=== PATIENT | male | born 1960 | race Caucasian/White ===

== ENCOUNTER 2017-05-29 19:58 | Inpatient (IN) | payer OTHER ==
[~2017-05-29] VITALS: Ht 177.8 cm; Wt 75.0 kg
[2017-05-29 20:00] VITALS: BP 107/72; PULSE 85; RESP 18; TEMP 99.6; O2SAT 98
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
[2017-05-29 20:15] VITALS: O2SAT 98
[2017-05-29] MEDS ORDERED: SODIUM CHLORIDE 0.9% FLUSH 10 ML FLUSH IV FLUSH PRN ×2 (20:15→21:30)
[2017-05-29] MEDS ORDERED: SODIUM CHLOR 0.9% 1000 ML INJ 1,000 ML IV ONE ×2 (20:15→21:00)
[2017-05-29 20:30] VITALS: BP 122/71; PULSE 85; RESP 16; TEMP 98.9; O2SAT 97
[2017-05-29 20:35] LABS: AUTOMATED NEUTROPHIL # 12.6 TH/MM3 (1.8-7.7); BASOPHIL # 0.2 TH/MM3 (0-0.2); BASOPHIL % 1.2 % (0.0-2.0); EOSINOPHIL % 0.1 % (0.0-4.0); HEMATOCRIT 48.4 % (39.0-51.0); HEMOGLOBIN 16.6 GM/DL (13.0-17.0); LYMPH % 6.5 % (9.0-44.0); MEAN CELL VOLUME 101.6 FL (80.0-100.0); MEAN CORPUSCULAR HEMOGLOBIN 34.8 PG (27.0-34.0); MEAN CORPUSCULAR HGB CONC 34.3 % (32.0-36.0); MEAN PLATELET VOLUME 8.2 FL (7.0-11.0); MONO % 10.6 % (0.0-8.0); MONOCYTE # 1.6 TH/MM3 (0-0.9); NEUT % 81.6 % (16.0-70.0); PLATELET COUNT 218 TH/MM3 (150-450); RED BLOOD COUNT 4.76 MIL/MM3 (4.50-5.90); RED CELL DISTRIBUTION WIDTH 12.6 % (11.6-17.2); WHITE BLOOD COUNT 15.4 TH/MM3 (4.0-11.0)
[2017-05-29 20:39] LABS: CHLORIDE 99 MEQ/L (98-107); SODIUM (NA) 136 MEQ/L (136-145)
[2017-05-29 20:43] LABS: BICARBONATE 23.5 MEQ/L (21.0-32.0); BLOOD UREA NITROGEN 58 MG/DL (7-18); CALCIUM 8.6 MG/DL (8.5-10.1); GLUCOSE,RANDOM 125 MG/DL (74-106)
[2017-05-29 20:46] LABS: ALT (GPT) 81 U/L (12-78); AST (GOT) 165 U/L (15-37); GLOMERULAR FILTRATION RATE 52 ML/MIN (>89)
[2017-05-29 20:48] LABS: TOTAL BILIRUBIN ADULT 1.9 MG/DL (0.2-1.0); TOTAL PROTEIN 7.9 GM/DL (6.4-8.2)
[2017-05-29 20:49] LABS: ALKALINE PHOSPHATASE 92 U/L (45-117)
[2017-05-29 20:50] LABS: INTERNATIONAL NORMALIZED RATIO 1.1 RATIO; PROTHROMBIN TIME - PATIENT 11.3 SEC (9.8-11.6)
[2017-05-29 20:51] LABS: TROPONIN I 0.04 NG/ML (0.02-0.05)
[2017-05-29 21:00] VITALS: BP 130/80; PULSE 88; RESP 18; O2SAT 97
--- NOTE | 2017-05-29 21:01 | RADRPT ---
EXAM DATE/TIME: 05/29/2017 20:29 [facility] COMPARISON: No previous studies available for comparison. INDICATIONS : Altered mental status. Unable to walk or stand. Memory loss RADIATION DOSE: 61.62 CTDIvol (mGy) MEDICAL HISTORY : None SURGICAL HISTORY : None. ENCOUNTER: Initial ACUITY: 1 day PAIN SCALE: 5/10 LOCATION: cranial TECHNIQUE: Multiple contiguous axial images were obtained of the head. Using automated exposure control and adj ustment of the mA and/or kV according to patient size, radiation dose was kept as low as reasonably a chievable to obtain optimal diagnostic quality images. DICOM format image data is available electro nically for review and comparison. FINDINGS: CEREBRUM: The ventricles are normal for age. No evidence of midline shift, mass lesion, hemorrhage or acute in farction. No extra-axial fluid collections are seen. POSTERIOR FOSSA: The cerebellum and brainstem are intact. The 4th ventricle is midline. The cerebellopontine angle i s unremarkable. EXTRACRANIAL: The visualized portion of the orbits is intact. SKULL: The calvaria is intact. No evidence of skull fracture. CONCLUSION: Negative noncontrast head CT. Curtis Siddiqui MD on May 29, 2017 at 20:58 Board Certified Radiologist. This report was verified electronically.
--- NOTE | 2017-05-29 21:22 | RADRPT ---
EXAM DATE/TIME: 05/29/2017 21:09 [facility] COMPARISON: No previous studies available for comparison. INDICATIONS : Syncopal episode. MEDICAL HISTORY : None. SURGICAL HISTORY : None. ENCOUNTER: Initial ACUITY: 1 day PAIN SCORE: 0/10 LOCATION: Bilateral chest FINDINGS: Mild anteriorly diffuse interstitial opacities are seen of both lungs. Nothing confluent. No pleural effusion or pneumothorax. Normal heart size. CONCLUSION: Mild diffuse interstitial opacities with differential of noncardiogenic edema and atypical or viral p neumonia. Curtis Siddiqui MD on May 29, 2017 at 21:19 Board Certified Radiologist. This report was verified electronically.
[2017-05-29] MEDS ORDERED: BISACODYL 10 MG SUPP RECTAL PRN (21:30)
[2017-05-29] MEDS ORDERED: ACETAMINOPHEN/HYDROcodone 325 MG/5 MG TAB PO PRN (21:30)
[2017-05-29] MEDS ORDERED: ACETAMINOPHEN/HYDROcodone 325 MG/10 MG TAB PO PRN (21:30)
[2017-05-29] MEDS ORDERED: ONDANSETRON HCL 4 MG/2 ML VIAL IVP PRN (21:30)
[2017-05-29] MEDS ORDERED: ACETAMINOPHEN 325 MG TAB PO PRN (21:30)
[2017-05-29] MEDS ORDERED: LACTULOSE SYRUP 20 GM/30 ML CUP PO PRN (21:30)
[2017-05-29] MEDS ORDERED: MAGNESIUM HYDROXIDE SUSP 30 ML CUP PO PRN (21:30)
[2017-05-29] MEDS ORDERED: SENNOSIDES 8.6 MG TAB PO PRN (21:30)
[2017-05-29 21:33] LABS: ACETAMINOPHEN LESS THAN 2.0 MCG/ML (10.0-30.0)
[2017-05-29] MEDS ORDERED: AZITHROMYCIN INJ 500 MG in SODIUM CHLOR 0.9% 250 ML INJ 250 ML IV ONE (21:45)
[2017-05-29] MEDS ORDERED: cefTRIAXone INJ 1,000 MG in SODIUM CHLORIDE 0.9% INJ 100 ML IV ONE (21:45)
[2017-05-29 21:57] VITALS: BP 125/65; PULSE 82; RESP 16; O2SAT 97
[2017-05-29 21:58] LABS: BILIRUBIN, URINE MOD (NEG); BLOOD, URINE LARGE (NEG); GLUCOSE,URINE NEG (NEG); KETONE, URINE 80 OR GREATER mg/dL (NEG); NITRITE,URINE NEG (NEG); PH, URINE 5.5 (5.0-8.5); URINE LEUKOCYTE ESTERASE NEG (NEG)
[2017-05-29 22:15] LABS: URINE COLOR AMBER (YELLW/STRAW)
[2017-05-29 22:16] LABS: MUCUS URINE FEW /lpf (OCC)
[2017-05-29 22:17] LABS: RBC, URINE 0-3 /hpf (0-3)
[2017-05-29 22:18] LABS: RENAL EPITHELIAL CELLS 0-5 /hpf; SQUAMOUS EPITHELIAL CELL URINE 0-5 /hpf (0-5)
[2017-05-29 22:19] LABS: AMORPHOUS SEDIMENT, URINE SMALL
[2017-05-30] VITALS: BP 120/71; PULSE 98; RESP 20; TEMP 96.6; O2SAT 96
[2017-05-30] MEDS: SODIUM CHLOR 0.9% 1000 ML INJ 1,000 ML IV SCH ×4 (00:35→23:41)
[2017-05-30 04:00] VITALS: BP 117/53; PULSE 95; RESP 18; TEMP 96.2; O2SAT 92
[2017-05-30 08:00] VITALS: BP 125/57; PULSE 90; RESP 20; TEMP 97.1; O2SAT 97
[2017-05-30] MEDS: DOCUSATE SODIUM 50 MG/SENNA 8.6 MG TAB PO SCH ×2 (08:13→21:00)
[2017-05-30] MEDS: SODIUM CHLORIDE 0.9% FLUSH 10 ML FLUSH IV FLUSH SCH ×2 (08:15→21:00)
[2017-05-30] MEDS ORDERED: ACETAMINOPHEN/HYDROcodone 325 MG/5 MG TAB PO PRN (10:00)
[2017-05-30] MEDS: CEFEPIME INJ 2,000 MG in SODIUM CHLORIDE 0.9% INJ 100 ML IV SCH ×2 (10:47→23:41)
[2017-05-30 11:41] LABS: BASOPHIL # 0.1 TH/MM3 (0-0.2); BASOPHIL % 0.6 % (0.0-2.0); EOSINOPHIL % 0.3 % (0.0-4.0); HEMATOCRIT 37.6 % (39.0-51.0); LYMPH % 11.4 % (9.0-44.0); LYMPHOCYTE # 1.1 TH/MM3 (1.0-4.8); MEAN CELL VOLUME 100.1 FL (80.0-100.0); MEAN CORPUSCULAR HEMOGLOBIN 34.6 PG (27.0-34.0); MEAN CORPUSCULAR HGB CONC 34.6 % (32.0-36.0); MEAN PLATELET VOLUME 8.2 FL (7.0-11.0); MONO % 14.3 % (0.0-8.0); MONOCYTE # 1.4 TH/MM3 (0-0.9); NEUT % 73.4 % (16.0-70.0); PLATELET COUNT 181 TH/MM3 (150-450); RED BLOOD COUNT 3.76 MIL/MM3 (4.50-5.90); RED CELL DISTRIBUTION WIDTH 11.9 % (11.6-17.2); WHITE BLOOD COUNT 9.6 TH/MM3 (4.0-11.0)
[2017-05-30 11:49] LABS: CHLORIDE 106 MEQ/L (98-107); SODIUM (NA) 141 MEQ/L (136-145)
[2017-05-30 11:51] LABS: INTERNATIONAL NORMALIZED RATIO 1.1 RATIO; PROTHROMBIN TIME - PATIENT 11.4 SEC (9.8-11.6)
[2017-05-30 11:52] LABS: CALCIUM 7.8 MG/DL (8.5-10.1)
[2017-05-30 11:59] LABS: ALBUMIN 2.2 GM/DL (3.4-5.0); ALKALINE PHOSPHATASE 76 U/L (45-117); ALT (GPT) 64 U/L (12-78); AST (GOT) 140 U/L (15-37); BICARBONATE 26.7 MEQ/L (21.0-32.0); BLOOD UREA NITROGEN 37 MG/DL (7-18); CREATININE 0.95 MG/DL (0.60-1.30); GLOMERULAR FILTRATION RATE 81 ML/MIN (>89); GLUCOSE,RANDOM 136 MG/DL (74-106); TOTAL BILIRUBIN ADULT 1.2 MG/DL (0.2-1.0); TOTAL PROTEIN 5.9 GM/DL (6.4-8.2)
[2017-05-30 12:00] VITALS: BP 112/68; PULSE 93; RESP 20; TEMP 97.5; O2SAT 95
--- NOTE | 2017-05-30 12:29 | RADRPT ---
EXAM DATE/TIME: 05/30/2017 11:57 [facility] COMPARISON: No previous studies available for comparison. INDICATIONS : Increased BUN/Creatnine. MEDICAL HISTORY : Seizures. Arthritis. Alcohol use. Substance use. SURGICAL HISTORY : Left ankle repair with pins. Left wrist artery repair. ENCOUNTER: Initial ACUITY: 1 day PAIN SCORE: 3/10 LOCATION: Bilateral flank MEASUREMENTS: RIGHT KIDNEY: 12.0 x 4.2 x 5.8 cm LEFT KIDNEY: 11.7 x 4.4 x 5.6 cm FINDINGS: RIGHT KIDNEY: Renal cortex is normal in thickness and echotexture. No hydronephrosis, or mass. There is a small 5 mm stone identified within the lower pole. LEFT KIDNEY: 9 mm stone identified within the upper pole. BLADDER: Bladder is decompressed with a Hicks catheter present CONCLUSION: Bilateral small nonobstructing renal stones. The renal cortex is normal in thickness and echogenicity . The bladder is decompressed with a Hicks catheter. Marlena Otoole MD on May 30, 2017 at 12:24 Board Certified Radiologist. This report was verified electronically.
[2017-05-30] MEDS ORDERED: LORazepam 2 MG/ML VIAL IV PUSH PRN ×4 (13:45)
[2017-05-30] MEDS ORDERED: LORazepam 2 MG TAB PO PRN (13:45)
[2017-05-30] MEDS ORDERED: LORazepam 1 MG TAB PO PRN (13:45)
[2017-05-30] MEDS ORDERED: FLUMAZENIL 0.5 MG/5 ML VIAL IV PUSH PRN (13:45)
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
[2017-05-30 15:08] LABS: FREE T3 2.56 PG/ML (2.18-3.98); FREE T4 1.07 NG/DL (0.76-1.46)
[2017-05-30 16:00] VITALS: BP_SYST 125; BP_SYST 140; BP_DIAS 65; BP_DIAS 75; PULSE 81; PULSE 95; RESP 20; TEMP 96.4; TEMP 98.3; O2SAT 95; O2SAT 97
[2017-05-30] MEDS ORDERED: RESP: ALBUTEROL 2.5 MG/IPRATROPIUM 0.5 MG NEB (PRN) NEB (18:15)
[2017-05-30 20:27] VITALS: BP 123/89; PULSE 98; RESP 20; TEMP 96.6; O2SAT 97
[2017-05-30] MEDS: ACETAMINOPHEN/HYDROcodone 325 MG/10 MG TAB PO PRN (20:42)
[2017-05-31] VITALS: BP 123/87; PULSE 88; RESP 18; TEMP 96.9; O2SAT 95
[2017-05-31] MEDS: ACETAMINOPHEN/HYDROcodone 325 MG/10 MG TAB PO PRN ×3 (03:04→17:56)
[2017-05-31 06:29] LABS: CHLORIDE 110 MEQ/L (98-107); SODIUM (NA) 142 MEQ/L (136-145)
[2017-05-31] MEDS: SODIUM CHLOR 0.9% 1000 ML INJ 1,000 ML IV SCH ×3 (06:31→17:57)
[2017-05-31] MEDS: LEVOTHYROXINE SODIUM 112 MCG TAB PO SCH (06:32)
[2017-05-31 06:34] LABS: ALBUMIN 2.1 GM/DL (3.4-5.0); BICARBONATE 27.9 MEQ/L (21.0-32.0); CALCIUM 7.7 MG/DL (8.5-10.1); GLUCOSE,RANDOM 96 MG/DL (74-106)
[2017-05-31 06:42] LABS: ALKALINE PHOSPHATASE 69 U/L (45-117); ALT (GPT) 63 U/L (12-78); AST (GOT) 114 U/L (15-37); BLOOD UREA NITROGEN 19 MG/DL (7-18); CREATININE 0.68 MG/DL (0.60-1.30); GLOMERULAR FILTRATION RATE 119 ML/MIN (>89); TOTAL PROTEIN 5.6 GM/DL (6.4-8.2)
[2017-05-31 08:00] VITALS: BP 159/79; PULSE 89; RESP 20; TEMP 96.9; O2SAT 95
[2017-05-31] MEDS: DOCUSATE SODIUM 50 MG/SENNA 8.6 MG TAB PO SCH ×2 (08:49→20:36)
[2017-05-31] MEDS: THIAMINE HCL 100 MG TAB PO SCH (08:49)
[2017-05-31] MEDS: SODIUM CHLORIDE 0.9% FLUSH 10 ML FLUSH IV FLUSH SCH ×2 (08:50→20:36)
[2017-05-31] MEDS: REMOVE OLD PATCH T-DERMAL SCH (08:51)
[2017-05-31] MEDS: NICOTINE 21 MG/24 HR PATCH T-DERMAL SCH (08:51)
--- NOTE | 2017-05-31 10:20 | HHI.PR ---
Subjective Remarks Follow-up pneumonia/rhabdomyolysis/weakness 05/31/17-patient seen and examined,states he is still weak and unable to move much out of bed, despite the fact that he was able to use the bedside commode overnight on his own. Still with some cough production. Afebrile. patient is alert and oriented 3 Objective Vitals Vital Signs Date Time Temp Pulse Resp B/P (MAP) Pulse Ox O2 Delivery O2 Flow Rate FiO2 05/31/17 08:00 96.9 89 20 159/79 (105) 95 05/31/17 00:00 96.9 88 18 123/87 (99) 95 05/30/17 20:27 96.6 98 20 123/89 (100) 97 05/30/17 16:00 96.4 95 20 125/75 (92) 97 05/30/17 12:00 97.5 93 20 112/68 (83) 95 I/O 05/30/17 05/30/17 05/30/17 05/31/17 05/31/17 05/31/17 07:00 15:00 23:00 07:00 15:00 23:00 Intake Total 730 ml 2255 ml 910 ml 2240 ml Output Total 750 ml 1200 ml 2000 ml Balance -20 ml 1055 ml 910 ml 240 ml Intake Oral 480 ml 1200 ml 240 ml IV Total 250 ml 1055 ml 910 ml 2000 ml Output Urine Total 750 ml 1200 ml 2000 ml # Bowel Movements 1 0 Result Diagram: 05/30/17 1052 05/31/17 0537 Imaging Last Impressions Renal Ultrasound 05/30/17 0000 Signed Impressions: Service Date/Time: Tuesday, May 30, 2017 11:57 - CONCLUSION: Bilateral small nonobstructing renal stones. The renal cortex is normal in thickness and echogenicity. The bladder is decompressed with a Hicks catheter. Marlena Otoole MD Head CT 05/29/172002 Signed Impressions: Service Date/Time: Monday, May 29, 2017 20:29 - CONCLUSION: Negative noncontrast head CT. Curtis Siddiqui MD Chest X-Ray 05/29/172002 Signed Impressions: Service Date/Time: Monday, May 29, 2017 21:09 - CONCLUSION: Mild diffuse interstitial opacities with differential of noncardiogenic edema and atypical or viral pneumonia. Curtis Siddiqui MD Objective Remarks GENERAL: NAD SKIN: Warm and dry. HEAD: Normocephalic. EYES: No scleral icterus. No injection or drainage. NECK: Supple, trachea midline. No JVD or lymphadenopathy. CARDIOVASCULAR: Regular rate and rhythm without murmurs, gallops, or rubs. RESPIRATORY: Breath sounds equal bilaterally. No accessory muscle use. GASTROINTESTINAL: Abdomen soft, non-tender, nondistended. MUSCULOSKELETAL: No cyanosis, or edema. RLE/LLE weakness BACK: Nontender without obvious deformity. No CVA tenderness. A/P Problem List: (1) Rhabdomyolysis ICD Code: M62.82 - Rhabdomyolysis Status: Acute (2) Transaminitis ICD Code: R74.0 - Nonspecific elevation of levels of transaminase and lactic acid dehydrogenase [LDH] (3) Paranoid delusion ICD Code: F22 - Delusional disorders (4) Acute renal injury ICD Code: N17.9 - Acute kidney failure, unspecified Status: Acute (5) Community acquired bacterial pneumonia ICD Code: J15.9 - Unspecified bacterial pneumonia (6) Hypothyroidism ICD Code: E03.9 - Hypothyroidism, unspecified Status: Acute (7) Dehydration ICD Code: E86.0 - Dehydration Status: Acute Assessment and Plan 57-year-old man with Nontraumatic rhabdomyolysis-Improving Continue current aggressive IV fluid resuscitation Monitor CK trending Acute renal failure-Resolved Prerenal secondary to dehydration Treatment with IV fluid resuscitation Renal ultrasound noted Avoid all nephrotoxic drugs and monitor BUN and creatinine Transaminitis-Improving Likely secondary to history of alcohol abuse Hepatitis profile pending Elevated blood glucose-Resolved Hemoglobin A1c pending and treat accordingly Community acquired bacterial pneumonia Chest x-ray with finding of mild diffuse interstitial opacities Status post Rocephin and azithromycin IV 1 in ED Currently on cefepime IV pending culture report Leukocytosis Resolved UA Positive for occult blood Secondary to above dehydration versus nontraumatic rhabdomyolysis Continue with IV fluid hydration D/c Hicks Hypothyroidism TSH of 5.530 Currently on Synthroid 112 MCG daily Repeat TSH and free T4 in 4-6 weeks Paranoid delusional Psychiatry consultation pending History of alcohol abuse patient was counselled against Currently on rally pack, CIWA protocol History Of alcohol abuse Tobacco cessation counseling provided Continue nicotine patch Generalized weakness PT to treat and eval DVT prophylaxis: Bilateral SCDs Problem Qualifiers (1) Rhabdomyolysis: Qualified Codes: T79.6XXA - Traumatic ischemia of muscle, initial encounter (2) Hypothyroidism: Qualified Codes: E03.9 - Hypothyroidism, unspecified Maco Fleming MD May 31, 2017 10:20
[2017-05-31] MEDS: CEFEPIME INJ 2,000 MG in SODIUM CHLORIDE 0.9% INJ 100 ML IV SCH ×2 (11:05→22:02)
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
[2017-05-31 12:00] VITALS: BP 124/72; PULSE 92; RESP 18; TEMP 96.8; O2SAT 96
[2017-05-31 14:07] LABS: HEPATITIS A AB IGM NEGATIVE (NEGATIVE); HEPATITIS B CORE AB IGM NEGATIVE (NEGATIVE); HEPATITIS B SURFACE ANTIGEN NEGATIVE (NEGATIVE); HEPATITIS C AB IgG NEGATIVE (NEGATIVE)
[2017-05-31 15:59] LABS: HEMOGLOBIN A1C 5.7 % (4.3-6.0)
[2017-05-31 16:00] VITALS: BP 163/74; PULSE 86; RESP 18; TEMP 98.6; O2SAT 97
--- NOTE | 2017-05-31 17:42 | EKG ---
Date Performed: 05/29/2017 Time Performed: 20:18:32 PTAGE: 57 years EKG: Sinus rhythm WITH SINUS ARRHYTHMIA Poor R wave progression. Consider INFERIOR MYOCARDIAL INFARCTION-age undetermi mee. ABNORMAL ECG NO PREVIOUS TRACING DOCTOR: Francisco Baldwin Interpretating Date/Time 05/31/2017 17:41:50
[2017-05-31 20:00] VITALS: BP 118/79; PULSE 91; RESP 20; TEMP 99.9; O2SAT 96
[2017-06-01] VITALS: BP 152/95; PULSE 82; RESP 20; TEMP 98.2; O2SAT 97
[2017-06-01] MEDS: ACETAMINOPHEN/HYDROcodone 325 MG/10 MG TAB PO PRN ×2 (00:25→07:55)
[2017-06-01] MEDS: SODIUM CHLOR 0.9% 1000 ML INJ 1,000 ML IV SCH ×3 (01:16→15:03)
[2017-06-01] MEDS: LEVOTHYROXINE SODIUM 112 MCG TAB PO SCH (06:10)
[2017-06-01 06:44] LABS: AUTOMATED NEUTROPHIL # 8.3 TH/MM3 (1.8-7.7); BASOPHIL # 0.1 TH/MM3 (0-0.2); BASOPHIL % 1.2 % (0.0-2.0); EOSINOPHIL # 0.2 TH/MM3 (0-0.4); EOSINOPHIL % 1.7 % (0.0-4.0); HEMOGLOBIN 12.8 GM/DL (13.0-17.0); LYMPH % 12.3 % (9.0-44.0); LYMPHOCYTE # 1.5 TH/MM3 (1.0-4.8); MEAN CELL VOLUME 100.5 FL (80.0-100.0); MEAN CORPUSCULAR HEMOGLOBIN 34.7 PG (27.0-34.0); MEAN CORPUSCULAR HGB CONC 34.5 % (32.0-36.0); MEAN PLATELET VOLUME 7.7 FL (7.0-11.0); MONO % 15.5 % (0.0-8.0); MONOCYTE # 1.8 TH/MM3 (0-0.9); NEUT % 69.3 % (16.0-70.0); PLATELET COUNT 225 TH/MM3 (150-450); RED BLOOD COUNT 3.68 MIL/MM3 (4.50-5.90); RED CELL DISTRIBUTION WIDTH 11.9 % (11.6-17.2); WHITE BLOOD COUNT 11.9 TH/MM3 (4.0-11.0)
[2017-06-01 06:49] LABS: CHLORIDE 109 MEQ/L (98-107); SODIUM (NA) 143 MEQ/L (136-145)
[2017-06-01 06:52] LABS: CALCIUM 7.8 MG/DL (8.5-10.1)
[2017-06-01 06:53] LABS: ALBUMIN 2.2 GM/DL (3.4-5.0); BICARBONATE 27.1 MEQ/L (21.0-32.0); BLOOD UREA NITROGEN 10 MG/DL (7-18); GLUCOSE,RANDOM 97 MG/DL (74-106)
[2017-06-01 06:56] LABS: ALT (GPT) 75 U/L (12-78); AST (GOT) 100 U/L (15-37); CREATININE 0.65 MG/DL (0.60-1.30); GLOMERULAR FILTRATION RATE 126 ML/MIN (>89)
[2017-06-01 06:57] LABS: TOTAL BILIRUBIN ADULT 0.8 MG/DL (0.2-1.0); TOTAL PROTEIN 5.9 GM/DL (6.4-8.2)
[2017-06-01 06:59] LABS: ALKALINE PHOSPHATASE 106 U/L (45-117)
[2017-06-01] MEDS: DOCUSATE SODIUM 50 MG/SENNA 8.6 MG TAB PO SCH (07:54)
[2017-06-01] MEDS: THIAMINE HCL 100 MG TAB PO SCH (07:54)
[2017-06-01] MEDS: NICOTINE 21 MG/24 HR PATCH T-DERMAL SCH (07:56)
[2017-06-01] MEDS: SODIUM CHLORIDE 0.9% FLUSH 10 ML FLUSH IV FLUSH SCH (07:56)
[2017-06-01] MEDS: REMOVE OLD PATCH T-DERMAL SCH (07:56)
[2017-06-01 08:00] VITALS: BP 169/85; PULSE 91; RESP 18; TEMP 96.8; O2SAT 97
[2017-06-01] MEDS ORDERED: POTASSIUM CHLORIDE 10 MEQ CONTROLLED RELEASE TAB PO ONE (08:30)
[2017-06-01] MEDS: CEFEPIME INJ 2,000 MG in SODIUM CHLORIDE 0.9% INJ 100 ML IV SCH (11:00)
[2017-06-01 12:00] VITALS: BP 140/79; PULSE 88; RESP 18; TEMP 97; O2SAT 96
--- NOTE | 2017-06-01 15:33 | HHI.FF ---
Face to Face Verification Diagnosis: (1) Weakness (2) Dehydration (3) Pneumonia (4) Rhabdomyolysis Physical Therapy Order: Evaluate and Treat Home Health Nursing Order: Nursing assessment with vital signs I have seen patient Deejay Simmons on 06/01/17. My clinical findings support the need for the requested home health care services because: Patient was evaluated here in the hospital by physical therapy and they recommend home health PT. Deconditioned w/ increased weakness I certify that my clinical findings support that this patient is homebound because: Patient was evaluated here in the hospital by physical therapy and they recommend home health PT. Unsteady gait/balance Francheska Hernandez MD Jun 01, 2017 15:33
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
[2017-06-01] MEDS ORDERED: HYDR-3516 PO (15:46)
[2017-06-01] MEDS ORDERED: SYNT112T PO (15:46)
[2017-06-01] MEDS ORDERED: AZIT500T2 PO (15:47)
--- NOTE | 2017-06-01 16:03 | HHI.PYPN ---
Mental Status Examination Appearance: Appropriate Consciousness: Alert Orientation: x4 Motor Activity: Normal gait Speech: Unremarkable Language: Adequate Fund of Knowledge: Adequate Attention and Concentration: Adequate Memory: Unremarkable Mood: Appropriate Affect: Appropriate Thought Process & Associations: Intact Thought Content: Appropriate Hallucination Type: None Delusion Type: None Suicidal Ideation: No Suicidal Plan: No Suicidal Intention: No Homicidal Ideation: No Homicidal Plan: No Homicidal Intention: No Insight: Adequate Judgment: Adequate Results Labs Test 06/01/17 06:10 White Blood Count 11.9 TH/MM3 Red Blood Count 3.68 MIL/MM3 Hemoglobin 12.8 GM/DL Hematocrit 37.0 % Mean Corpuscular Volume 100.5 FL Mean Corpuscular Hemoglobin 34.7 PG Mean Corpuscular Hemoglobin Concent 34.5 % Red Cell Distribution Width 11.9 % Platelet Count 225 TH/MM3 Mean Platelet Volume 7.7 FL Neutrophils (%) (Auto) 69.3 % Lymphocytes (%) (Auto) 12.3 % Monocytes (%) (Auto) 15.5 % Eosinophils (%) (Auto) 1.7 % Basophils (%) (Auto) 1.2 % Neutrophils # (Auto) 8.3 TH/MM3 Lymphocytes # (Auto) 1.5 TH/MM3 Monocytes # (Auto) 1.8 TH/MM3 Eosinophils # (Auto) 0.2 TH/MM3 Basophils # (Auto) 0.1 TH/MM3 CBC Comment AUTO DIFF Differential Comment AUTO DIFF CONFIRMED Blood Urea Nitrogen 10 MG/DL Creatinine 0.65 MG/DL Random Glucose 97 MG/DL Total Protein 5.9 GM/DL Albumin 2.2 GM/DL Calcium Level 7.8 MG/DL Alkaline Phosphatase 106 U/L Aspartate Amino Transf (AST/SGOT) 100 U/L Alanine Aminotransferase (ALT/SGPT) 75 U/L Total Bilirubin 0.8 MG/DL Sodium Level 143 MEQ/L Potassium Level 3.4 MEQ/L Chloride Level 109 MEQ/L Carbon Dioxide Level 27.1 MEQ/L Anion Gap 7 MEQ/L Estimat Glomerular Filtration Rate 126 ML/MIN Total Creatine Kinase 258 U/L Date/Time Source Procedure Growth Status 05/29/17 20:25 Blood Peripheral Aerobic Blood Culture - Preliminary NO GROWTH IN 3 DAYS Resulted 05/29/17 20:25 Blood Peripheral Anaerobic Blood Culture - Preliminary NO GROWTH IN 3 DAYS Resulted Vitals/IOs Vital Signs Date Time Temp Pulse Resp B/P (MAP) Pulse Ox O2 Delivery O2 Flow Rate FiO2 06/01/17 12:00 97.0 88 18 140/79 (99) 96 05/29/17 21:57 Room Air Intake and Output 06/01/17 06/01/17 06/02/17 08:00 16:00 00:00 Intake Total 1480 ml 1010 ml Output Total 750 ml Balance 730 ml 1010 ml Assessment & Plan Problem List: (1) Unspecified psychosis ICD Codes: F29 - Unspecified psychosis not due to a substance or known physiological condition Assessment & Plan: On reevaluation today the patient does not present any evidence of depression, anxiety or psychosis. He denies SI/HI/VH/AH. He is fully orientedx3, no attention deficit, no fluctuation of consciousness present. Seems to me that recent episode of paranoia and confusion was related with delirium now resolved. Brief supportive psychotherapy provided. Assessment & Plan Estimated LOS: days Justification for Cont. Inpt. no psychiatric admission indicated Eduardo Bee MD Jun 01, 2017 16:03
--- NOTE | 2017-06-02 09:05 | HHI.PYPN ---
Subjective Remarks This is a late entry for patient seen on June 01, 2017 at 3:30 PM. The patient was seen today for psychiatric reevaluation. Case was discussed with nursing charge and also with primary in charge attending. On psychiatric evaluation patient reports feeling much better today, he has a brighter affect, he says that he is in a good mood, ready to go back home. Patient says that his wishing to go back home see his pets and continue his life. Patient understand the is going to be difficult for him in the future days without his , "but I am not giving up, and she will not forgive me if I give up". He reports good sleep, good level of appetite, good energy, the patient is fully oriented 3, without any fluctuation of consciousness, no attention deficit, he is completely logical coherent and relevant. He denies suicidal and homicidal ideation, he denies visual and auditory hallucinations. Review of Systems Except as stated in HPI: all other systems reviewed are Neg Mental Status Examination Appearance: Appropriate Consciousness: Alert Orientation: x4 Motor Activity: Normal gait Speech: Unremarkable Language: Adequate Fund of Knowledge: Adequate Attention and Concentration: Adequate Memory: Unremarkable Mood: Appropriate Affect: Appropriate Thought Process & Associations: Intact Thought Content: Appropriate Hallucination Type: None Delusion Type: None Suicidal Ideation: No Suicidal Plan: No Suicidal Intention: No Homicidal Ideation: No Homicidal Plan: No Homicidal Intention: No Insight: Adequate Judgment: Adequate Results Labs Date/Time Source Procedure Growth Status 05/29/17 20:25 Blood Peripheral Aerobic Blood Culture - Preliminary NO GROWTH IN 3 DAYS Resulted 05/29/17 20:25 Blood Peripheral Anaerobic Blood Culture - Preliminary NO GROWTH IN 3 DAYS Resulted Vitals/IOs Vital Signs Date Time Temp Pulse Resp B/P (MAP) Pulse Ox O2 Delivery O2 Flow Rate FiO2 06/01/17 12:00 97.0 88 18 140/79 (99) 96 05/29/17 21:57 Room Air Assessment & Plan Problem List: (1) Unspecified psychosis ICD Codes: F29 - Unspecified psychosis not due to a substance or known physiological condition Assessment & Plan: Patient does not present any neuropsychiatric symptoms that requires immediate psychiatric intervention or admission. Since to me that his initial/presentation delusional ideas and confusion were secondary to delirium related with his acute renal injury and pneumonia. Brief supportive psychotherapy, motivation psycho education provided. Assessment & Plan Estimated LOS: days Justification for Cont. Inpt. No psychiatric admission indicated. Eduardo Bee MD Jun 02, 2017 09:05
== END 2017-06-01 18:41 | disposition home health service (06) | DRG 682 ==
LOC: PHED 19:58 → PHEDA 21:29 → PH3A 23:25
PROVIDERS: ADMIT Hospitalist; ATTEND Hospitalist
DX: N17.9 Acute kidney failure, unspecified (principal); J15.9 Unspecified bacterial pneumonia; M62.82 Rhabdomyolysis; F05 Delirium due to known physiological condition; E86.0 Dehydration; E03.9 Hypothyroidism, unspecified; R74.0 Nonspecific elevation of levels of transaminase and lactic acid dehydrogenase [LDH]; R73.9 Hyperglycemia, unspecified; F10.10 Alcohol abuse, uncomplicated; F17.200 Nicotine dependence, unspecified, uncomplicated; Y90.0 Blood alcohol level of less than 20 mg/100 ml; Z04.71 Encounter for examination and observation following alleged adult physical abuse
CPT/HCPCS: 51702; 70450; 71045; 76775; 80053; 80074; 80307; 81001; 82140; 82550; 82552; 83036; 83605; 84439; 84443; 84481; 84484; 85025; 85610; 87040; 93005; 96360; J0456; J0692; J0696; J7030; J7050